=== PATIENT | female | born 1985 | race Caucasian/White ===

== ENCOUNTER → 2023-05-07 15:14 | Outpatient (REF) | payer OTHER, SELFPAY | LOC: PNTC 15:14 | PROVIDERS: ATTENDING PHYSICIAN Obstetrics & Gynecology | DX: O09.529 Supervision of elderly multigravida, unspecified trimester (principal); O32.9XX0 Maternal care for malpresentation of fetus, unspecified, not applicable or unspecified | CPT/HCPCS: 76816 ==

== ENCOUNTER 2023-06-09 07:18 | Inpatient (IN) | payer OTHER, SELFPAY ==
[2023-06-09 07:56] VITALS: BP 129/92; BMI 32.2
[2023-06-09] MEDS: LR 1000 IV ×2 (08:43→18:32)
[2023-06-09 09:13] LABS: % Basophils 0.4 % (0-2); % Eosinophils 0.7 % (0-6); % Immature Granulocytes 1.1 % (0-0.5); % Lymphocytes 19.1 % (20.5-51.1); % Neutrophils 69.7 % (42.2-75.2); Absolute Eosinophils 0.1 10^3/uL (0-0.7); Absolute Immature Granulocytes 0.1 10^3/uL (0-0.05); Absolute Lymphocytes 1.6 10^3/uL (1.2-3.4); Absolute Monocytes 0.8 10^3/uL (0.1-0.6); Absolute Neutrophils 5.9 10^3/uL (1.4-6.5); Hematocrit 40.4 % (37.0-47.0); Hemoglobin 14.2 g/dL (12.0-16.0); Mean Corp Hgb Conc. 35.1 g/dL (33.0-37.0); Mean Corpuscular Hgb 31.4 pg (27.0-31.0); Mean Corpuscular Volume 89.4 fL (81.0-99.0); Mean Platelet Volume 10.9 fL (7.4-10.4); Nucleated Red Blood Cells % 0 %; Platelet Count 153 10^3/uL (130-400); Red Blood Cell Count 4.52 10^6/uL (4.20-5.40); Red Cell Dist. Width 12.8 % (11.5-14.5); White Blood Cell Count 8.4 10^3/uL (4.8-10.8)
[2023-06-09 10:10] LABS: ALT (SGPT) 12 U/L (0-35); AST (SGOT) 23 U/L (14-36); Albumin 3.7 g/dl (3.5-5.0); Alkaline Phosphatase 202 U/L (38-126); Blood Urea Nitrogen 10 mg/dl (7-17); Calcium 9.7 mg/dl (8.4-10.2); Carbon Dioxide 16 mmol/L (22-30); Chloride 107 mmol/L (98-107); Estimated Creatinine Clearance > 125 ml/min; Glucose 83 mg/dl (70-99); Potassium 4.1 mmol/L (3.5-5.1); Sodium 133 mmol/L (135-145); Total Bilirubin 0.4 mg/dl (0.2-1.3); Total Protein 6.3 g/dl (6.3-8.2); eGFR > 60.00
[2023-06-09 10:27] LABS: Protein/creatinine Ratio 0.7; Urine Protein 15 mg/dl
[2023-06-09] MEDS: FENTANYL/BUPIVACAINE 100 EPIDURAL (18:46)
[2023-06-09] MEDS: SUBLIMAZE 100 MCG EPIDURAL (18:46)
[2023-06-09] MEDS: PITOCIN 30 UNITS/NSS 500 ML IV (21:07)
[2023-06-10 06:26] LABS: Hemoglobin 11.7 g/dL (12.0-16.0)
[2023-06-10] MEDS: TYLENOL 650 MG PO ×3 (08:05→21:22)
[2023-06-10] MEDS: MOTRIN 600 MG PO ×3 (08:05→21:23)
[2023-06-10] MEDS: PRENATAL PLUS 1 TABLET PO (08:06)
[2023-06-10 14:34] LABS: Syphilis/T. pallidum Ab Reflex Negative (Negative)
[2023-06-11] MEDS: PRENATAL PLUS 1 TABLET PO (08:59)
== END 2023-06-11 16:03 | disposition home or self-care (01) | DRG 807 ==
LOC: LDRP 07:18
PROVIDERS: ADMITTING PHYSICIAN Obstetrics & Gynecology
PROC: 10E0XZZ Delivery of Products of Conception, External Approach (ICD-10-PCS; 2023-06-09)
DX: O48.0 Post-term pregnancy (principal); Z37.0 Single live birth; Z3A.40 40 weeks gestation of pregnancy; O99.284 Endocrine, nutritional and metabolic diseases complicating childbirth; E28.2 Polycystic ovarian syndrome
CPT/HCPCS: 80053; 82570; 84156; 85014; 85018; 85025; 86780; 86850; 86900; 86901